=== PATIENT | male | born 1930 | race Caucasian/White ===

== ENCOUNTER 2016-10-22 12:28 | Day surgery (SDC) | payer MEDICARE, OTHER ==
[~2016-10-22] VITALS: Ht 167.6 cm; Wt 76.2 kg
[2016-10-22 14:40] VITALS: BP_SYST 105
== END 2016-10-22 16:33 | disposition home or self-care (01) ==
LOC: SUS 12:28
DX: K74.60 Unspecified cirrhosis of liver (principal)
CPT/HCPCS: 49083; C1729